=== PATIENT | male | born 1955 | race Caucasian/White ===

== ENCOUNTER 2017-05-20 17:47 | Inpatient (IN) | payer OTHER ==
[~2017-05-20] VITALS: Ht 185.4 cm; Wt 116.8 kg
[2017-05-20] MEDS ORDERED: MAGNESIUM HYDROXIDE SUSP 30 ML CUP PO PRN (22:15)
[2017-05-20] MEDS ORDERED: NICOTINE 21 MG/24 HR PATCH T-DERMAL PRN (22:15)
[2017-05-20] MEDS ORDERED: diphenhydrAMINE HCL 50 MG CAP PO PRN (22:15)
[2017-05-20] MEDS ORDERED: REMOVE OLD PATCH T-DERMAL PRN (22:15)
[2017-05-20] MEDS ORDERED: BENZTROPINE MESYLATE 2 MG/2 ML VIAL IM PRN (22:15)
[2017-05-20] MEDS ORDERED: ALUMINUM/MAGNESIUM/SIMETH 30 ML CUP PO PRN (22:15)
[2017-05-20] MEDS ORDERED: ACETAMINOPHEN 325 MG TAB PO PRN (22:15)
[2017-05-20] MEDS ORDERED: BENZTROPINE MESYLATE 1 MG TAB PO PRN (22:15)
[2017-05-20 23:44] VITALS: BP 147/89; PULSE 91; RESP 18; TEMP 97.9; O2SAT 96
[2017-05-21] MEDS ORDERED: DILTIAZEM-CD 240 MG CAP ER PO SCH (09:00)
[2017-05-21] MEDS ORDERED: METOPROLOL SUCCINATE 25 MG EXTENDED RELEASE TAB PO SCH (09:00)
[2017-05-21] MEDS ORDERED: predniSONE 50 MG TAB PO SCH (09:00)
[2017-05-21] MEDS ORDERED: ASPIRIN EC 81 MG TABEC PO SCH (09:00)
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
[2017-05-21 12:14] LABS: AUTOMATED NEUTROPHIL # 4.5 TH/MM3 (1.8-7.7); BASOPHIL % 0.2 % (0.0-2.0); EOSINOPHIL # 0.1 TH/MM3 (0-0.4); EOSINOPHIL % 1.7 % (0.0-4.0); HEMATOCRIT 48.1 % (39.0-51.0); HEMOGLOBIN 16.9 GM/DL (13.0-17.0); LYMPH % 25.5 % (9.0-44.0); LYMPHOCYTE # 1.9 TH/MM3 (1.0-4.8); MEAN CELL VOLUME 91.8 FL (80.0-100.0); MEAN CORPUSCULAR HEMOGLOBIN 32.3 PG (27.0-34.0); MEAN CORPUSCULAR HGB CONC 35.2 % (32.0-36.0); MEAN PLATELET VOLUME 7.9 FL (7.0-11.0); MONO % 12.7 % (0.0-8.0); NEUT % 59.9 % (16.0-70.0); PLATELET COUNT 234 TH/MM3 (150-450); RED BLOOD COUNT 5.23 MIL/MM3 (4.50-5.90); RED CELL DISTRIBUTION WIDTH 14.1 % (11.6-17.2); WHITE BLOOD COUNT 7.5 TH/MM3 (4.0-11.0)
[2017-05-21 12:31] LABS: INTERNATIONAL NORMALIZED RATIO 1.2 RATIO; PROTHROMBIN TIME - PATIENT 11.8 SEC (9.8-11.6)
[2017-05-21 12:41] LABS: ALBUMIN 3.5 GM/DL (3.4-5.0); AST (GOT) 16 U/L (15-37); BICARBONATE 31.5 MEQ/L (21.0-32.0); BLOOD UREA NITROGEN 23 MG/DL (7-18); CALCIUM 9.1 MG/DL (8.5-10.1); CHLORIDE 102 MEQ/L (98-107); CREATININE 1.03 MG/DL (0.60-1.30); GLOMERULAR FILTRATION RATE 74 ML/MIN (>89); GLUCOSE,RANDOM 84 MG/DL (74-106); SODIUM (NA) 140 MEQ/L (136-145)
[2017-05-21 12:42] LABS: ALT (GPT) 35 U/L (12-78); CHOLESTEROL 290 MG/DL (120-200); TRIGLYCERIDES 98 MG/DL (42-150)
[2017-05-21 12:45] LABS: ALKALINE PHOSPHATASE 90 U/L (45-117); CHOLESTEROL/ HDL RATIO 5.29 RATIO; HDL CHOLESTEROL 54.8 MG/DL (40.0-60.0); LDL CHOLESTEROL 216 MG/DL (0-99); TOTAL BILIRUBIN ADULT 0.7 MG/DL (0.2-1.0); TOTAL PROTEIN 6.9 GM/DL (6.4-8.2)
[2017-05-21 13:25] LABS: BASOPHILS 2 % (0-2); LYMPHOCYTES 18 % (9-44); METAMYELOCYTES 1 % (0-1); MONOCYTES 12 % (0-8); NEUTROPHIL # MANUAL DIFF 5.1 TH/MM3 (1.8-7.7); POLYS (SEG NEUTROPHILS) 67 % (16-70)
--- NOTE | 2017-05-21 15:45 | PD.CONS ---
HPI Service [facility] Consult Requested By Primary Care Physician Unknown Diagnoses: History of Present Illness Mr. Bray is a 62-year-old male. He is admitted secondary to reports of overdose. He has not had any symptoms. He has been interviewed and cleared by psychiatry. She had reported taking 10 pills of 5 mg of Coumadin and 20 pills of 240 mg of Cardizem. Blood work is ordered and shows no acute pathology including INR. It is possible that the number she took is over reported or that there was potentially no actual overdose. Review of Systems Constitutional: DENIES: Fatigue, Fever, Chills, Night Sweats Eyes: DENIES: Blurred vision, Diplopia, Eye inflammation, Eye pain Ears, nose, mouth, throat: DENIES: Tinnitus, Hearing loss, Vertigo Respiratory: DENIES: Cough, Wheezing, Shortness of breath Cardiovascular: DENIES: Chest pain, Palpitations, Syncope Gastrointestinal: DENIES: Abdominal pain, Black stools, Bloody stools Musculoskeletal: DENIES: Joint pain, Stiffness Integumentary: DENIES: Abnormal pigmentation, Nail changes, Pruritus, Rash Hematologic/lymphatic: DENIES: Bruising, Lymphadenopathy Immunologic/allergic: DENIES: Eczema, Urticaria Neurologic: DENIES: Abnormal gait, Headache, Paresthesias Psychiatric: COMPLAINS OF: Depression, DENIES: Anxiety, Confusion, Hallucinations Past Family Social History Allergies: Coded Allergies: No Known Allergies (Unverified Allergy, Unknown, 05/20/17) Past Medical History A. fib Gout Hypertension Osteoarthritis Past Surgical History Appendectomy Reported Medications Reported Meds & Active Scripts Active No Active Prescriptions or Reported Medications Family History Myocardial infarction in father CVA and mother Social History Occasional alcohol use No smoking No illicit drug abuse Physical Exam Vital Signs Vital Signs Date Time Temp Pulse Resp B/P (MAP) Pulse Ox O2 Delivery O2 Flow Rate FiO2 05/20/17 23:44 97.9 91 18 147/89 (108) 96 Physical Exam GENERAL: NAD, A&Ox3 HEAD: Normocephalic. NECK: Supple, trachea midline. No lymphadenopathy. EYES: No scleral icterus. No injection or drainage. CARDIOVASCULAR: Regular rate and rhythm without murmurs, gallops, or rubs. RESPIRATORY: Breath sounds equal bilaterally. No accessory muscle use. GASTROINTESTINAL: Abdomen soft, non-tender, nondistended. MUSCULOSKELETAL: No cyanosis, or edema. SKIN: Warm and dry. NEURO: No focal neurological deficitis. Laboratory Laboratory Tests Test 05/21/17 10:25 White Blood Count 7.5 Red Blood Count 5.23 Hemoglobin 16.9 Hematocrit 48.1 Mean Corpuscular Volume 91.8 Mean Corpuscular Hemoglobin 32.3 Mean Corpuscular Hemoglobin Concent 35.2 Red Cell Distribution Width 14.1 Platelet Count 234 Mean Platelet Volume 7.9 Neutrophils (%) (Auto) 59.9 Lymphocytes (%) (Auto) 25.5 Monocytes (%) (Auto) 12.7 Eosinophils (%) (Auto) 1.7 Basophils (%) (Auto) 0.2 Neutrophils # (Auto) 4.5 Lymphocytes # (Auto) 1.9 Monocytes # (Auto) 1.0 Eosinophils # (Auto) 0.1 Basophils # (Auto) 0.0 CBC Comment AUTO DIFF Differential Total Cells Counted 100 Neutrophils % (Manual) 67 Lymphocytes % 18 Monocytes % 12 Basophils % 2 Neutrophils # (Manual) 5.1 Metamyelocytes 1 Differential Comment FINAL DIFF MANUAL Platelet Estimate NORMAL Platelet Morphology Comment NORMAL Prothrombin Time 11.8 Prothromb Time International Ratio 1.2 Activated Partial Thromboplast Time 24.7 Blood Urea Nitrogen 23 Creatinine 1.03 Random Glucose 84 Total Protein 6.9 Albumin 3.5 Calcium Level 9.1 Alkaline Phosphatase 90 Aspartate Amino Transf (AST/SGOT) 16 Alanine Aminotransferase (ALT/SGPT) 35 Total Bilirubin 0.7 Sodium Level 140 Potassium Level 3.6 Chloride Level 102 Carbon Dioxide Level 31.5 Anion Gap 7 Estimat Glomerular Filtration Rate 74 Triglycerides Level 98 Cholesterol Level 290 LDL Cholesterol 216 HDL Cholesterol 54.8 Cholesterol/HDL Ratio 5.29 Result Diagram: 05/21/17 1025 05/21/17 1025 Assessment and Plan Problem List: (1) Adjustment disorder with mixed disturbance of emotions and conduct ICD Code: F43.25 - Adjustment disorder with mixed disturbance of emotions and conduct Assessment and Plan 62-year-old male admitted secondary to overdose Overdose INR is normal Patient monitor without any arrhythmias or tachycardia No further need for follow-up Medically clear for discharge Discharge planning He has been cleared for psychiatry to discharge to home and medical clearance is provided in light of this. Rajesh Mccain MD May 21, 2017 15:45
[2017-05-21 16:24] LABS: HEMOGLOBIN A1C 5.2 % (4.3-6.0)
== END 2017-05-21 15:00 | disposition home or self-care (01) | DRG 882 ==
LOC: H250 21:55
PROVIDERS: ADMIT Psychiatry & Neurology Psychiatry; ATTEND Psychiatry & Neurology Psychiatry
DX: F43.25 Adjustment disorder with mixed disturbance of emotions and conduct (principal); I48.91 Unspecified atrial fibrillation; I10 Essential (primary) hypertension; F10.10 Alcohol abuse, uncomplicated; M10.9 Gout, unspecified; M19.90 Unspecified osteoarthritis, unspecified site; Y90.0 Blood alcohol level of less than 20 mg/100 ml; Z59.0 Homelessness; Z62.810 Personal history of physical and sexual abuse in childhood
CPT/HCPCS: 80053; 80061; 83036; 85007; 85027; 85610; 85730; J7512; Q0163